=== PATIENT | female | born 1965 | race Caucasian/White ===

== ENCOUNTER → 2018-06-25 | Outpatient (CLI) | payer OTHER ==
[~2018-06-25] MED LIST: CALC-98 PO; EXEM25TA PO; LEVO125T PO; METF500T16 PO; OXYC1TAB15 PO; SITA100T PO
--- NOTE | 2018-06-25 15:39 | KCIC ---
Indication: Postmenopausal screening for osteoporosis. COMPARISON: None available. Bone Density: -BMD: (g/cm2) - AP Spine Total (L1-L4).......... 1.149. - Total left Hip................. 1.141. T-Score: - AP Spine Total (L1-L4)......... 0.9. - Total left Hip................. 1.6. Z-Score: - AP Spine Total (L1-L4).......... 1.8. - Total left Hip................. 2.2. World Health Organization criteria for BMD interpretation classify patients as Normal (T-score at or above -1.0), Osteopenic (T-score between -1.0 and -2.5), or Osteoporotic (T-score at or below -2.5). Impression: 1. AP Spine Total L1-L4--- normal. 2. Total left Hip--- normal. Electronically signed by: James Solitario MD (06/25/2018 3:35 PM) [place] [id number]
== END | disposition home or self-care (01) ==
LOC: KCIC DEXA 11:15
PROVIDERS: ATTEND Internal Medicine Hematology & Oncology
DX: Z13.820 Encounter for screening for osteoporosis (principal); D05.11 Intraductal carcinoma in situ of right breast; N95.9 Unspecified menopausal and perimenopausal disorder; Z79.811 Long term (current) use of aromatase inhibitors
CPT/HCPCS: 77080